=== PATIENT | female | born 1970 | race Caucasian/White ===

== ENCOUNTER 2024-08-11 13:27 | Emergency (ER) | payer OTHER ==
[~2024-08-11] VITALS: Ht 167.6 cm; Wt 82.0 kg
[2024-08-11 13:31] VITALS: O2SAT 98
[2024-08-11 13:39] VITALS: BP 113/83; PULSE 86; RESP 18; TEMP 97.8; O2SAT 98
== END 2024-08-11 13:53 | disposition left against medical advice (07) ==
LOC: ER 13:27
DX: R51.9 Headache, unspecified (principal); Z53.21 Procedure and treatment not carried out due to patient leaving prior to being seen by health care provider